=== PATIENT | male | born 1965 | race Caucasian/White ===

== ENCOUNTER 2021-07-09 16:04 | Emergency (ER) | payer MEDICAID ==
[~2021-07-09] VITALS: Ht 175.3 cm; Wt 86.2 kg
[2021-07-09] MEDS ORDERED: TDAP DIPH,PERTUSS,TET VAC/PF 0.5 ML DISP.SYRIN IM ONE ×2 (16:15→16:30)
[2021-07-09] MEDS ORDERED: CEphaleXIN 500 MG CAPSULE PO ONE (16:15)
[2021-07-09] MEDS ORDERED: SULFAMETH/TRIMETH 800/160 MG TABLET PO ONE (16:15)
[2021-07-09] MEDS ORDERED: MUPIROCIN 2% OINT 22 GM TUBE TP ONE (16:15)
[2021-07-09] MEDS ORDERED: CEphaleXIN 500 MG CAPSULE ONE (16:29)
[2021-07-09] MEDS ORDERED: BACITRACIN ZINC OINT 15 GM TUBE ONE (16:29)
[2021-07-09] MEDS ORDERED: SULFAMETH/TRIMETH 800/160 MG TABLET ONE (16:30)
[2021-07-09] MEDS ORDERED: SULF1TAB48 PO (17:17)
[2021-07-09] MEDS ORDERED: CEPH500C2 PO (17:17)
[2021-07-09 17:25] VITALS: BP 121/70
--- NOTE | 2021-07-09 17:40 | NUR ---
Patient discharged to home in stable condition. Written and verbal after care instructions given. Patient verbalizes understanding of instructions. Stressed follow up or return to ER for worsening s/s.
== END 2021-07-09 17:40 | disposition home or self-care (01) ==
LOC: ER 16:07
DX: S61.212A Laceration without foreign body of right middle finger without damage to nail, initial encounter (principal); L08.9 Local infection of the skin and subcutaneous tissue, unspecified; W29.8XXA Contact with other powered hand tools and household machinery, initial encounter; Y92.69 Other specified industrial and construction area as the place of occurrence of the external cause; Y99.0 Civilian activity done for income or pay
CPT/HCPCS: 73140; 90715; A4217; A4663